=== PATIENT | female | born 1990 | race Native Hawaiian/Other Pacific Islander ===

== ENCOUNTER 2016-06-01 18:38 | Emergency (ER) | payer OTHER ==
[~2016-06-01] VITALS: Ht 154.9 cm; Wt 92.1 kg
[~2016-06-01 18:38] MED LIST: CLARITIN10 M1 PO; LISI10TA11 PO
== END 2016-06-01 21:00 | disposition home or self-care (01) ==
LOC: ED 18:38
DX: J45.909 Unspecified asthma, uncomplicated (principal); R06.00 Dyspnea, unspecified
CPT/HCPCS: 81000; 81025; 87804; 96372; 99283; J1885